=== PATIENT | female | born 1950 | race Asian ===

== ENCOUNTER 2020-02-18 17:18 | Inpatient (IN) | payer MEDICARE, BC ==
[~2020-02-18] VITALS: Ht 162.6 cm; Wt 54.4 kg
--- NOTE | 2020-02-18 18:29 | NUR ---
GPS/RN PT RECEIVED DIRECT ADMIT. FROM THE [facility]. ADMITTING ORDERS FROM DR STANLEY RECEIVED AND CARRIED OUT. PT NOTIFIED OF ADMISSION. WILL ENDORSE TO BALANCER TO FOLLOW UP WITH ADMISSION. Addendum: 02/18/20 at 1842 by NAIN ANGULO RN [facility] [phone]
[2020-02-18 18:32] VITALS: BP 137/72
--- NOTE | 2020-02-18 18:32 | NUR ---
GPS/RN PT REFUSED TO REMOVE YELLOW METAL BRACELET FROM HER WRIST.
[2020-02-18] MEDS ORDERED: MAGNESIUM HYDROXIDE 30 ML UDC PO PRN (19:00)
[2020-02-18] MEDS ORDERED: MAG HYDROX/AL HYDROX/SIMETH 30 ML UDC PO PRN (19:00)
[2020-02-18] MEDS ORDERED: BLOOD SUGAR DIAGNOSTIC 1 EACH STRIP IN ONE (19:00)
[2020-02-18] MEDS ORDERED: ACETAMINOPHEN 325 MG TABLET PO PRN (19:00)
--- NOTE | 2020-02-18 19:11 | NUR ---
GPS TALENT ASSOCIATE NOTES: ADMITTED 69 Y/O FEMALE. PT ADMITTED FROM [facility] GPS UNIT ON A 5150. PER HOLD, PT HAS BEEN CONFUSED, RAMBLING, AND NOT MAKING SENSE. FAMILY IS CONCERNED FOR PATIENTS SAFETY DUE TO HER BEING CONFUSED AND INABILITY TO CARE FOR HERSELF. UPON FACE TO FACE ASSESSMENT, PT IS ALERT ORIENTATED X2, UNCOOPERATIVE, HYPERVERBAL, EASILY AGITATED, FORGETFUL, CONFUSED, DISORGANIZED, ANXIOUS, VERBALLY CURSING AT SELF AND OTHERS, NOT MAKING SENSE WHEN MAKING CONVERSATION. WHEN ASKED PT HER REASON SHE IS HERE, PT STATED, " I HAVE A . CALL HIM!" PT REFUSED TO SIGN CONSENT PAPERS. ENVIRONMENTAL SAFETY CHECK DONE Q15MIN. ENCOURAGE TP VERBALIZE THOUGHTS AND FEELINGS WITH STAFF. ORIENTED TO THE UNIT. NURSING ASSESSMENT DONE. PT REFUSED BODY ASSESSMENT AND PICTURE. EXPLAIN RISKS AND BENEFITS. PT STILL REFUSED X3 AND INCREASED AGITATION. PT REFUSED INITIAL BLOOD SUGAR CHECK, WILL TRY AGAIN LATER. PICTURE TAKEN OT PTS FACE. PICTURE PUT IN CHART. PROVIDED PT W/ HANDBOOK AND MED GUIDE. VITALS TAKEN WNL. NO S.S OF RESP DISTRESS. BREATHING EVEN AND UNLABORED. NO S/S OF PAIN AT THIS TIME. CONTINUE TO MONITOR.
--- NOTE | 2020-02-18 19:49 | NUR ---
GPS RN NOTES: REFUSED INITIAL ACCU CHECK PT REFUSED INITIAL ACCU CHECK. EXPLAIN RISKS AND BENEFITS. PT STILL REFUSED X3. CONTINUE TO MONITOR.
[2020-02-18 20:13] VITALS: BP 137/86
[2020-02-18] MEDS: ZOLPIDEM TARTRATE 5 MG TABLET PO PRN (22:31)
--- NOTE | 2020-02-18 22:32 | NUR ---
GPS RN NOTES: INSOMNIA UPON DOING ROUNDS, PT AWAKE, LOUD, AND HYPERVERBAL. ASKED PT IF SHE CAN NOT SLEEP. PT STATED, "I CANT SLEEP." OFFERED AMBIEN 5MG PO PRN ORDERED. PT AGREED AND TOLERATED MEDICATION WELL. CONTINUE TO MONITOR.
--- NOTE | 2020-02-19 02:12 | NUR ---
GPS RN NOTES: REFUSED ATIVAN UPON DOING ROUNDS PT STILL AWAKE AND TALKING OUT LOUD. PT SEEMS ANXIOUS. ENCOURAGE PT TO EXPRESS THOUGHTS AND FEELINGS. PT RAMBLING AND NOT MAKING SENSE. OFFERED ATIVAN PO PRN ORDERED. PT REFUSED AND STATED, " IM NOT RACISTS. I WONT TAKE ANYTHING. " EXPLAIN RISKS AND BENEFITS. PT STILL REFUSED X3. CONTINUE TO MONITOR.
[2020-02-19 07:21] LABS: ALBUMIN 3.3 g/dL (3.4-5.0); BILIRUBIN,TOTAL 0.4 mg/dL (0.2-1.0); CALCIUM, SERUM 9.3 mg/dL (8.5-10.1); CREATININE 0.9 mg/dL (0.6-1.3); POTASSIUM 3.6 mmol/L (3.5-5.1); TOTAL PROTEIN, SERUM 8.1 g/dL (6.4-8.2)
[2020-02-19 07:22] LABS: CHOLESTEROL 191 mg/dL (<200); HDL CHOLESTEROL 62 mg/dL (40-60); LDL 114 mg/dL (0-99); TRIGLYCERIDES 78 mg/dL (30-150)
[2020-02-19 08:00] VITALS: BP 155/86
[2020-02-19] MEDS: MULTIVIT W/MINERALS 1 TAB TABLET PO SCH (09:56)
[2020-02-19] MEDS: ESCITALOPRAM OXALATE (10 MG) 10 MG TABLET PO SCH (09:56)
[2020-02-19] MEDS: LORAZEPAM 0.5 MG TABLET PO PRN ×2 (10:02→18:15)
--- NOTE | 2020-02-19 10:02 | NUR ---
RN NOTE: ANXIETY PT NOTED TO BE ANXIOUS, RESTLESS, HYPERVERBAL, DELUSIONAL AND PARANOID. MEDICATED WITH ATIVAN 1MG PO PRN.
--- NOTE | 2020-02-19 10:46 | NUR ---
Family Contact: WILFRIDO called the pts , Catalino ([phone]), and informed him that the pts speech is nonsensical and that the SW cannot obtain any information from her. SW received collateral information from the pts for the psychosocial assessment. WILFRIDO then discussed the pts initial discharge plan with the pts and he stated that he would like the pt to return to their home once she is stable.
--- NOTE | 2020-02-19 12:17 | NUR ---
Initial Discharge Plan: Pt currently resides in her home located at [address] [place] [address]; ([phone]) with her , Catalino ([phone]). Per pts , pt will return home once stable. SW will work with the pt and the MD regarding appropriate discharge planning. SW will form a safe and proper discharge.
--- NOTE | 2020-02-19 15:36 | NUR ---
Group Note: SW encouraged the pt to participate in group therapy but the pt began rambling and it was nonsensical. Pt stated, "Who are you? I do not believe in any God. I miss going to the park with my dog Jim. Do you know Jim? And President Lorenzopadma should be fired." WILFRIDO deemed that the pt cannot participate as she is not appropriate at this time.
[2020-02-19 16:00] VITALS: BP 155/90
--- NOTE | 2020-02-19 18:15 | NUR ---
RN NOTE: ANXIETY PT HYPERVERBAL, ANXIOUS AND AGITATED. MEDICATED WITH ATIVAN 1MG PO PRN
[2020-02-19 20:07] VITALS: BP 155/94
[2020-02-19] MEDS: QUETIAPINE FUMARATE 25 MG TABLET PO SCH (21:12)
[2020-02-19 21:30] VITALS: BP 145/87
[2020-02-19] MEDS: ZOLPIDEM TARTRATE 5 MG TABLET PO PRN (22:51)
--- NOTE | 2020-02-19 22:51 | NUR ---
GPS-RN NOTE: INSOMNIA PATIENT UNABLE TO SLEEP. ADMINISTERED AMBIEN 5MG PO ORDERED. WILL CONTINUE TO MONITOR FOR SAFETY.
[2020-02-20 08:00] VITALS: BP 135/81
[2020-02-20] MEDS: ESCITALOPRAM OXALATE (10 MG) 10 MG TABLET PO SCH (08:11)
[2020-02-20] MEDS: MULTIVIT W/MINERALS 1 TAB TABLET PO SCH (08:11)
[2020-02-20] MEDS: QUETIAPINE FUMARATE 25 MG TABLET PO SCH ×3 (10:11→22:36)
--- NOTE | 2020-02-20 14:54 | NUR ---
Individual Counseling : SW met with patient at bedside. SW attempted to engaged patient in conversation regarding mood. The patient stated, "It's like dreaming about price and birds". The patient is not appropriate for therapeutic milieu at this time as patient cannot engage in meaningful conversation. Patient will be invited to the next therapeutic milieu.
[2020-02-20 16:00] VITALS: BP 146/86
--- NOTE | 2020-02-20 19:22 | NUR ---
GPS RN OPENING NOTE: RECEIVED PT RESTING IN BED. A & O X 1-2. CONFUSED/FORGETFUL, ANXIOUS, NOT MAKING ANY SENSE, EASILY AGITATED, HYPERVERBAL, UNCOOPERATIVE, DISORGANIZED, GARBLES, DELUSIONAL, PARANOID, NO ACUTE DISTRESS NOTED. PT DENIES SI/HI AT THIS TIME. TALKING TO HERSELF BUT GARBLES. PER AM RN REPORT, AMBULATORY WITH STAND BY ASSIST DUE TO CONFUSION & FORGETFULNESS, NEEDS FREQUENT REMINDERS TO COMPLETE ADL TASK. BED ALARM ON. BED IN LOW LOCKED POSITION. ENVIRONMENTAL SAFETY CHECKS DONE. WILL CONT TO MONITOR Q 15 MINUTES FOR SAFETY AND BEHAVIOR PER GPS PROTOCOL.
[2020-02-20 20:00] VITALS: BP 146/86
[2020-02-20 20:06] VITALS: BP 146/86
[2020-02-20] MEDS: CEPHALEXIN MONOHYDRATE 500 MG CAPSULE PO SCH (20:45)
[2020-02-20] MEDS: LORAZEPAM 0.5 MG TABLET PO PRN (20:53)
--- NOTE | 2020-02-20 20:53 | NUR ---
ANXIETY/AGITATION PATIENT IS VERY ANXIOUS, RESTLESS, HYPERVERBAL, EASILY AGITATED. PRN ATIVAN 1 MG PO GIVEN. WILL CONTINUE TO MONITOR FOR SAFETY.
--- NOTE | 2020-02-20 21:15 | NUR ---
REFUSED SKIN ASSESSMENT PATIENT IS CONFUSED, FORGETFUL, NEEDS FREQUENT REMINDERS. REFUSED SKIN ASSESSMENT X 3, DOES NOT FOLLOW DIRECTIONS, KEEPS TALKING TO HERSELF, HYPERVERBAL, REFUSES TO TURN OR ROLL TO THE SIDE BUT ABLE TO TURN & REPOSITION IN BED ON HER OWN IF SHE WANTS TO. EASILY AGITATED & ANXIOUS IF TRIED TO RECHECK HER SKIN. UNABLE TO ASSESS PATIENT'S SKIN DUE TO UNCOOPERATIVE BEHAVIOR.
[2020-02-21 01:30] VITALS: BP 137/81
[2020-02-21] MEDS: ZOLPIDEM TARTRATE 5 MG TABLET PO PRN (01:34)
--- NOTE | 2020-02-21 01:34 | NUR ---
GPS RN NOTE: INSOMNIA PATIENT IS UNABLE TO SLEEP, PRN AMBIEN 5 MG 1 TAB PO GIVEN ORDERED. WILL CONTINUE TO MONITOR FOR EFFECTIVENESS.
[2020-02-21 08:00] VITALS: BP 155/92
[2020-02-21] MEDS: CEPHALEXIN MONOHYDRATE 500 MG CAPSULE PO SCH ×2 (09:33→21:14)
[2020-02-21] MEDS: QUETIAPINE FUMARATE 25 MG TABLET PO SCH ×3 (09:33→22:03)
[2020-02-21] MEDS: MULTIVIT W/MINERALS 1 TAB TABLET PO SCH (09:33)
[2020-02-21] MEDS: ESCITALOPRAM OXALATE (10 MG) 10 MG TABLET PO SCH (09:35)
--- NOTE | 2020-02-21 15:06 | NUR ---
INDIVIDUAL INTERVENTION: pt is not appropriate for individual counseling at this time as pt is responding to internal stimuli and does not engage in conversation.
--- NOTE | 2020-02-21 19:23 | NUR ---
GPS RN OPENING NOTE: RECEIVED PT RESTING IN BED WITH EYES OPEN. A & O X 1-2. VERY CONFUSED/FORGETFUL, ANXIOUS, NOT MAKING ANY SENSE, EASILY AGITATED, HYPERVERBAL, UNCOOPERATIVE, DISORGANIZED, GARBLES, DELUSIONAL, PARANOID, NO ACUTE DISTRESS NOTED. PT DENIES SI/HI AT THIS TIME. TALKING TO HERSELF AT TIMES & GARBLES. AMBULATORY WITH STAND BY ASSIST DUE TO CONFUSION & FORGETFULNESS, NEEDS FREQUENT REMINDERS TO COMPLETE ADL TASK. FALL RISK. BED ALARM ON. BED IN LOW LOCKED POSITION. ENVIRONMENTAL SAFETY CHECKS DONE. WILL CONT TO MONITOR Q 15 MINUTES FOR SAFETY AND BEHAVIOR PER GPS PROTOCOL.
[2020-02-21 20:00] VITALS: BP 151/96
[2020-02-21 20:40] VITALS: BP 151/96
[2020-02-21 23:15] VITALS: BP 137/78
[2020-02-22 08:00] VITALS: BP 159/97
[2020-02-22] MEDS: CEPHALEXIN MONOHYDRATE 500 MG CAPSULE PO SCH ×2 (08:23→21:32)
[2020-02-22] MEDS: MULTIVIT W/MINERALS 1 TAB TABLET PO SCH (08:23)
[2020-02-22] MEDS: ESCITALOPRAM OXALATE (10 MG) 10 MG TABLET PO SCH (08:23)
[2020-02-22] MEDS: QUETIAPINE FUMARATE 25 MG TABLET PO SCH ×4 (08:24→21:32)
--- NOTE | 2020-02-22 13:54 | NUR ---
Charge nurse received a call from the chick room supervisor to discharge pt. without the wound consult as approved by Callie. Addendum: 02/22/20 at 1403 by COBY STUBBS RN the documentation is not for this pt.
[2020-02-22 16:00] VITALS: BP 147/85
--- NOTE | 2020-02-22 16:23 | NUR ---
INDIVIDUAL INTERVENTION: pt is not appropriate for individual counseling at this time as pt is responding to internal stimuli and does not engage in conversation.
--- NOTE | 2020-02-22 16:30 | NUR ---
Dr. Tiwari called and gave an order for MRI without contrast in the morning.
[2020-02-22 20:29] VITALS: BP 152/96
[2020-02-23 08:00] VITALS: BP 172/92
[2020-02-23] MEDS: CEPHALEXIN MONOHYDRATE 500 MG CAPSULE PO SCH (09:31)
[2020-02-23] MEDS: LORAZEPAM 0.5 MG TABLET PO PRN (09:31)
[2020-02-23] MEDS: MULTIVIT W/MINERALS 1 TAB TABLET PO SCH (09:31)
[2020-02-23] MEDS: ESCITALOPRAM OXALATE (10 MG) 10 MG TABLET PO SCH (09:31)
[2020-02-23] MEDS: QUETIAPINE FUMARATE 25 MG TABLET PO SCH ×3 (12:50→21:33)
[2020-02-23 16:00] VITALS: BP 141/78
[2020-02-23 20:35] VITALS: BP 120/84
[2020-02-23] MEDS: ZOLPIDEM TARTRATE 5 MG TABLET PO PRN (22:11)
--- NOTE | 2020-02-23 22:50 | NUR ---
GPS RN NOTE PT WAS CONFUSED, DISORIENTED AND DISORGANIZED. RESPONDING TO INTERNAL STIMULI. HALLUCINATING, HYPERVERBAL, POINTING AT THE WALL AND HAVING CONVERSATIONS. REFUSING REDIRECTION. UNABLE TO CONTROL BEHAVIOR. MEDICATION COMPLIANT. WILL CONTINUE TO MONITOR.
[2020-02-24 08:00] VITALS: BP 152/97
[2020-02-24] MEDS: QUETIAPINE FUMARATE 25 MG TABLET PO SCH ×4 (08:00→21:32)
[2020-02-24] MEDS: ESCITALOPRAM OXALATE (10 MG) 10 MG TABLET PO SCH (08:00)
[2020-02-24] MEDS: MULTIVIT W/MINERALS 1 TAB TABLET PO SCH (08:01)
[2020-02-24] MEDS: AMLODIPINE BESYLATE 5 MG TABLET PO SCH (14:13)
[2020-02-24 16:00] VITALS: BP 100/68
[2020-02-24 20:31] VITALS: BP 145/88
[2020-02-24] MEDS: ZOLPIDEM TARTRATE 5 MG TABLET PO PRN (21:32)
--- NOTE | 2020-02-24 22:49 | NUR ---
GPS RN NOTE RECEIVED PT PACING, LOUD, CONFUSED, DISORIENTED AND DISORGANIZED. AUDITORY AND VISUAL HALLUCINATIONS. RESPONDING TO INTERNAL STIMULI. UNABLE TO CONTROL BEHAVIOR. PT WAS REDIRECTED TO PRESENT SITUATION. MEDICATION COMPLIANT. PT IS UNABLE TO SLEEP, AMBIEN 5MG 1 TAB GIVEN PO ORDERED. PT CURRENTLY SLEEPING. NO S/S OF DISTRESS, RESPIRATION EVEN AND UNLABORED WITH EQUAL RISE AND FALL OF THE CHEST, ON ROOM AIR. WILL CONTINUE TO MONITOR.
[2020-02-25 08:00] VITALS: BP 157/92
[2020-02-25] MEDS: AMLODIPINE BESYLATE 5 MG TABLET PO SCH (08:23)
[2020-02-25] MEDS: ESCITALOPRAM OXALATE (10 MG) 10 MG TABLET PO SCH (08:23)
[2020-02-25] MEDS: QUETIAPINE FUMARATE 25 MG TABLET PO SCH ×4 (08:23→21:27)
[2020-02-25] MEDS: MULTIVIT W/MINERALS 1 TAB TABLET PO SCH (08:23)
--- NOTE | 2020-02-25 09:14 | NUR ---
GPS RN NOTE: PT RESTING IN BED AWAKE, A & O X 1-2.CONFUSED/FORGETFUL, ANXIOUS, DISORGANIZED, GARBLES, DELUSIONAL, PARANOID, PT DENIES SI/HI AT THIS TIME. TALKING TO HERSELF AT TIMES &FALL RISK. BED ALARM ON. BED IN LOW LOCKED POSITION. ENVIRONMENTAL SAFETY CHECKS DONE. WILL CONT TO MONITOR Q 15 MINUTES FOR SAFETY AND BEHAVIOR PER GPS PROTOCOL.
[2020-02-25 14:16] LABS: BASOPHILS % (AUTO) 0.6 % (0.0-2.0); EOSINOPHILS % (AUTO) 3.1 % (0.0-6.0); HEMATOCRIT 38 % (33-45); LYMPHOCYTES # (AUTO) 1.3 /CMM (0.8-4.8); LYMPHOCYTES % (AUTO) 23.4 % (20.0-44.0); MEAN CORPUSCULAR HGB CONC 34 g/dl (31.0-36.0); MEAN CORPUSCULAR VOLUME 94 fL (82-100); MONOCYTES # (AUTO) 0.5 /CMM (0.1-1.30); MONOCYTES % (AUTO) 9.7 % (2.0-12.0); NEUTROPHILS # (AUTO) 3.5 /CMM (1.8-8.9); NEUTROPHILS % (AUTO) 63.2 % (43.0-81.0); PLATELET COUNT (AUTO) 375 /CMM (150-450); RED BLOOD CELL COUNT(AUTO) 4.07 MIL/uL (4.0-5.2); WHITE BLOOD COUNT (AUTO) 5.5 K/uL (4.3-11.0)
[2020-02-25 14:30] LABS: ALBUMIN 3.5 g/dL (3.4-5.0); BILIRUBIN,TOTAL 0.7 mg/dL (0.2-1.0); CALCIUM, SERUM 9.4 mg/dL (8.5-10.1); CREATININE 0.9 mg/dL (0.6-1.3); POTASSIUM 3.8 mmol/L (3.5-5.1); TOTAL PROTEIN, SERUM 7.7 g/dL (6.4-8.2)
[2020-02-25 16:00] VITALS: BP 121/91
[2020-02-25] MEDS: BLOOD SUGAR DIAGNOSTIC 1 EACH STRIP IN SCH (16:48)
[2020-02-25] MEDS: LORAZEPAM 0.5 MG TABLET PO PRN (19:40)
--- NOTE | 2020-02-25 19:42 | NUR ---
GPS RN NOTE: ANXIETY/RESTLESSNESS PATIENT IS VRY ANXIOUS, RESTLESS, CRAWLING IN BED, HYPERVERBAL, MAKING WEIRD NOISES. PRN ATIVAN 1 MG PO GIVEN. WILL CONTINUE TO MONITOR FOR ANY CHANGES.
[2020-02-25 20:00] VITALS: BP 135/74
[2020-02-25 20:20] VITALS: BP 135/74
[2020-02-26] MEDS: ZOLPIDEM TARTRATE 5 MG TABLET PO PRN (02:05)
--- NOTE | 2020-02-26 02:06 | NUR ---
GPS RN NOTE: INSOMNIA PATIENT IS AWAKE & UNABLE TO SLEEP AT THIS TIME, GETTING RESTLESS & ANXIOUS. PRN AMBIEN 5 MG 1 TAB PO GIVEN. WILL CONTINUE TO MONITOR FOR SAFETY & BEHAVIOR.
[2020-02-26 08:00] VITALS: BP 132/90
[2020-02-26] MEDS: MULTIVIT W/MINERALS 1 TAB TABLET PO SCH (08:37)
[2020-02-26] MEDS: QUETIAPINE FUMARATE 25 MG TABLET PO SCH ×4 (08:37→21:03)
[2020-02-26] MEDS: ESCITALOPRAM OXALATE (10 MG) 10 MG TABLET PO SCH (08:37)
[2020-02-26] MEDS: AMLODIPINE BESYLATE 5 MG TABLET PO SCH (08:38)
[2020-02-26] MEDS: BLOOD SUGAR DIAGNOSTIC 1 EACH STRIP IN SCH ×2 (08:42→16:26)
--- NOTE | 2020-02-26 09:00 | NUR ---
RN NOTE- CONFUSED IN ROOM, MED COMPLIANT LESS VERBAL DELUSIONAL DENYIMG ALL PO INTAKE VARIED. GOOD THIS AM. DIRECTABLE CALM
[2020-02-26 09:26] LABS: APPEARANCE,URINE CLOUDY (CLEAR); BILIRUBIN,URINE NEGATIVE (NEGATIVE); BLOOD, URINE NEGATIVE Ery/uL (NEGATIVE); COLOR,URINE YELLOW (YELLOW); KETONES,URINE TRACE (NEGATIVE); LEUKOCYTE ESTERASE ,URINE NEGATIVE (NEGATIVE); NITRITE, URINE NEGATIVE (NEGATIVE); PROTEIN,URINE NEGATIVE (NEGATIVE); UGLUCOSE NEGATIVE (NEGATIVE); UROBILINOGEN,URINE 0.2 EU/dL (0.2)
[2020-02-26 09:46] LABS: RBC,URINE 0-2 /HPF (0-2); WBC,URINE 0-2 /HPF (0-3)
[2020-02-26 09:47] LABS: BACTERIA,URINE Few /HPF (None Seen); MUCUS,URINE Few /LPF (None Seen); SQUAMOUS EPITHELIAL CELL,UR 0-2 /HPF (None Seen); URINE AMORPHOUS URATE Many /HPF (None Seen)
--- NOTE | 2020-02-26 15:05 | NUR ---
GROUP NOTE: SW encouraged the pt to participate in group therapy discussing discharge plan but the pt began rambling nonsensically. Pt stated, "I need to call my and tell him I need to shower, that other teofilo needed shampoo and no one helped him. I will tell him the dog is outside. Wait who are you?" WILFRIDO deemed that the pt cannot participate as she is not appropriate at this time.
[2020-02-26 16:00] VITALS: BP 116/77
[2020-02-26 20:52] VITALS: BP 97/72
[2020-02-26 21:02] VITALS: BP 122/82
[2020-02-27] MEDS: ZOLPIDEM TARTRATE 5 MG TABLET PO PRN (00:50)
--- NOTE | 2020-02-27 00:50 | NUR ---
GPS RN NOTES: INSOMNIA UPON DOING ROUNDS, PT AWAKE AND TRYING TO GET OUT OF BED. OFFERED AMBIEN PO PRN ORDERED. PT AGREED AND TOLERATED MEDICATION WELL. CONTINUE TO MONITOR.
[2020-02-27 08:00] VITALS: BP 112/78
[2020-02-27] MEDS: BLOOD SUGAR DIAGNOSTIC 1 EACH STRIP IN SCH ×2 (08:34→17:13)
[2020-02-27] MEDS: AMLODIPINE BESYLATE 5 MG TABLET PO SCH (08:34)
[2020-02-27] MEDS: MULTIVIT W/MINERALS 1 TAB TABLET PO SCH (08:35)
[2020-02-27] MEDS: ESCITALOPRAM OXALATE (10 MG) 10 MG TABLET PO SCH (08:35)
[2020-02-27] MEDS: QUETIAPINE FUMARATE 25 MG TABLET PO SCH (08:35)
--- NOTE | 2020-02-27 09:00 | NUR ---
RN NOTE- PT RESPONDING TO INTERNAL STIMULUS, CONFUSED THOUGH CALM MUMBLING TO SELF
[2020-02-27] MEDS: risperiDONE 1 MG TABLET PO SCH ×2 (09:56→17:12)
[2020-02-27] MEDS ORDERED: KEY,NONCONTROL,TO KEEP IN PYXI 1 EA MC ONE (14:32)
--- NOTE | 2020-02-27 15:54 | NUR ---
Individual Counseling: This SW met patient at beside to facilitate individual counseling regarding support systems. However, the aptient presented sleeping and was not rousable by verbal cues. The patient will be invited to attend the next therapeutic milieu.
[2020-02-27 16:00] VITALS: BP 124/90
--- NOTE | 2020-02-27 17:30 | NUR ---
RN NOTE- UA CX COLLECTED AND LAB CALLED NOTIFIED
--- NOTE | 2020-02-27 19:35 | NUR ---
GPS RN NOTES RECEIVED PATIENT FROM MORNING SHIFT, ALERT AND ORIENTED X 1-2 CONFUSED AND DISORGANIZED. BREATHING REGULAR AND UNLABORED ON ROOM. NO S/S OF PAIN/DISCOMFORT NOTED AT THIS TIME. BED LOW AND LOCKED ON SEMI FOWLERS POSITION. WILL CLOSELY MONITOR FOR SAFETY AND BEHAVIOR.
[2020-02-27 20:00] VITALS: BP 110/77
[2020-02-27 20:08] VITALS: BP 110/77
[2020-02-27] MEDS: TRAZODONE 50 MG TABLET PO SCH (21:21)
[2020-02-28 08:00] VITALS: BP 118/82
[2020-02-28] MEDS: MULTIVIT W/MINERALS 1 TAB TABLET PO SCH (09:30)
[2020-02-28] MEDS: BLOOD SUGAR DIAGNOSTIC 1 EACH STRIP IN SCH ×2 (09:30→17:57)
[2020-02-28] MEDS: risperiDONE 1 MG TABLET PO SCH ×2 (09:31→17:41)
[2020-02-28] MEDS: AMLODIPINE BESYLATE 5 MG TABLET PO SCH (09:31)
--- NOTE | 2020-02-28 15:43 | NUR ---
Family Contact: SW called the pts , Catalino ([phone]), and informed him that the pt has been showing improvement sporadically and that the MD is assessing the pts condition day by day. WILFRIDO stated that once she is considered to be stable and the MD provides a discharge date the SW will inform the pts .
[2020-02-28 16:00] VITALS: BP 126/90
[2020-02-28] MEDS: TRAZODONE 50 MG TABLET PO SCH (21:27)
[2020-02-29 08:00] VITALS: BP 136/93
[2020-02-29] MEDS: MULTIVIT W/MINERALS 1 TAB TABLET PO SCH (08:44)
[2020-02-29] MEDS: risperiDONE 1 MG TABLET PO SCH ×2 (08:44→17:12)
[2020-02-29] MEDS: AMLODIPINE BESYLATE 5 MG TABLET PO SCH (08:45)
[2020-02-29] MEDS: BLOOD SUGAR DIAGNOSTIC 1 EACH STRIP IN SCH ×2 (09:18→17:04)
--- NOTE | 2020-02-29 14:34 | NUR ---
Group Note/Individual Session: SW encouraged the pt to participate in group therapy but the pt stated that she wanted to remain in her room until she is discharged back home. SW informed her that the MD believes that she has shown great improvement and will be discharged on Wednesday. Pt stated that she is no longer hearing any voices and was happy about making sense when she speaks. Pt states that she is excited to go back home and be with her and her dog.
[2020-02-29 16:00] VITALS: BP 145/83
[2020-02-29 20:42] VITALS: BP 140/81
[2020-02-29] MEDS: TRAZODONE 50 MG TABLET PO SCH (22:33)
--- NOTE | 2020-03-01 07:04 | NUR ---
GPS RN OPENING NOTE RECEIVED PT AWAKE SITTING BY SIDE OF BED AT THIS TIME. AO X2-3. PT ABLE TO VERBALIZE NEEDS. NO SOB NOTED, NO S/S OF ANY ACUTE DISTRESS NOTED, NO C/O PAIN AT THIS TIME, BREATHING EVEN AND UNLABORED. PT REMAINS CALM, COOPERATIVE AND COMPLAINT WITH CARE ADMINISTERED. SAFETY.PRECAUTIONS IN PLACE, BED IN LOWEST LOCKED POSITION, BED ALARM ON, HOB ELEVATED TO SEMI FOWLERS POSITION, CALL LIGHT WITHIN REACH,WILL CONTINUE WITH PLAN OF CARE AND CONTINUE TO MONITOR
[2020-03-01 08:00] VITALS: BP 129/58
[2020-03-01] MEDS: risperiDONE 1 MG TABLET PO SCH ×2 (08:59→17:17)
[2020-03-01] MEDS: MULTIVIT W/MINERALS 1 TAB TABLET PO SCH (08:59)
[2020-03-01] MEDS: AMLODIPINE BESYLATE 5 MG TABLET PO SCH (09:00)
[2020-03-01] MEDS: BLOOD SUGAR DIAGNOSTIC 1 EACH STRIP IN SCH ×2 (09:04→17:21)
--- NOTE | 2020-03-01 10:32 | NUR ---
Family Contact: SW called the pts , Catalino ([phone]), and informed him that the pt is being discharged the following day. SW explained that he would present to the front of the hospital and inform the transportation security officer who the pt is that he is picking up. SW expressed that the nursing staff will explain the medications to him and that the SW will provide him with psychiatrist referrals. Pts stated that he will come to pick the pt up around 10:30am.
--- NOTE | 2020-03-01 15:31 | NUR ---
GROUP/ INDIVIDUAL SESSION: SW encouraged the pt to participate in group therapy but the pt stated that she wanted to remain in her room until she is discharged back home. SW informed her that she will be discharged tomorrow. Pt stated that she is no longer hearing any voices but remains withdrawn and isolated. SW encouraged pt to come out of her room but pt states he feels safer in her room.
[2020-03-01 16:00] VITALS: BP 130/81
--- NOTE | 2020-03-01 16:01 | NUR ---
Psychiatrist Referrals: WILFRIDO printed out a list of geriatric psychiatrists that are in the area where the pt resides and placed the referrals in the chart to be given to the pts .
--- NOTE | 2020-03-01 18:56 | NUR ---
GPS RN CLOSING NOTE PATIENT SITTING AT EDGE OF BED AT THIS TIME. PT REMAINED STABLE THROUGHOUT SHIFT, ALL NEEDS, CARE, TREATMENT AND MEDICATIONS ADMINISTERED ANTICIPATED PER ORDER. PT REMAINED CALM, COOPERATIVE AND COMPLAINT TO CARE, SAFETY PRECAUTIONS IN PLACE, BED IN LOWEST LOCKED POSITION, BED ALARM ON, HOB ELEVATED TO SEMI FOWLERS POSITION, CALL LIGHT WITHIN REACH. WILL ENDORSE TO LUTE PACKER OR APPLIER NURSE FOR ALAN
[2020-03-01 20:52] VITALS: BP 131/56
[2020-03-01] MEDS: TRAZODONE 50 MG TABLET PO SCH (21:20)
[2020-03-02 08:00] VITALS: BP 131/89
--- NOTE | 2020-03-02 08:52 | NUR ---
Dr. Rutledge gave an order to D/C hold and D/C home and to follow up with the psych and medical doctors.
[2020-03-02 09:09] VITALS: BP 131/89
[2020-03-02] MEDS: MULTIVIT W/MINERALS 1 TAB TABLET PO SCH (09:09)
[2020-03-02] MEDS: risperiDONE 1 MG TABLET PO SCH (09:09)
[2020-03-02] MEDS: AMLODIPINE BESYLATE 5 MG TABLET PO SCH (09:09)
[2020-03-02] MEDS: BLOOD SUGAR DIAGNOSTIC 1 EACH STRIP IN SCH (09:09)
--- NOTE | 2020-03-02 10:30 | NUR ---
GPS/RN-NOTES PATIENT HAS A DISCHARGE ORDER FROM DR. STANLEY TODAY. SHE WAS DISCHARGE TO HOME . DR. HARRISON MADE AWARE AND AGREED OF THE DISCHARGE. PATIENT DID NOT VERBALIZE SI/HI,DENIES VISUAL/AUDITORY HALLUCINATIONS AT THE TIME OF DISCHARGE. INSULATION INSPECTOR BY CANDIDO VIA PRIVATE CAR. ALL DISCHARGE MEDICATIONS WAS DISCUSS AND REVIEWED WITH THE RX WAS GIVEN TO HIM INCLUDING PSYCHIATRIST REFERRALS LIST. PATIENT LEFT THE UNIT IN STABLE CONDITION ALERT ORIENTED X3 AMBULATORY STEADY GAIT. ALL BELONGINGS WAS GIVEN BACK TO THE PATIENT ,CORE DRIER ACCOMPANIED THE PATIENT IN THE LOBBY FOR SAFETY ALSO MASK WAS OFFERED TO THE PATIENT.
--- NOTE | 2020-03-04 10:10 | NUR ---
Discharge Note: Pt was discharged on 03/02/20 to her home located at [address] [place] [address]; ([phone]). Pt was picked up by her , Catalino ([phone]), at around 10:30am. Upon discharge per RN, pt appeared to be in a euthymic mood and presented in a calm affect. Pt denied both suicidal and homicidal ideation as well as auditory and visual hallucinations. Pt was well groomed, appropriately dressed and ambulatory. SW provided the pts with a list of psychiatric references in their area for follow up. Pt will be under the care of [facility] for psychiatric services, located [address] [place] [address]; ; and a fax of records was sent to: ([phone]). Pt will also be under the care of her dialysis equipment technician, Dr. Leonides Liz, located at [address] [place] [id number]; .
== END 2020-03-02 10:30 | disposition home or self-care (01) | DRG 885 ==
LOC: GPS 18:05
PROVIDERS: ADMIT Psychiatry & Neurology Psychiatry; ATTEND Nurse Practitioner Acute Care
DX: F29 Unspecified psychosis not due to a substance or known physiological condition (principal); N39.0 Urinary tract infection, site not specified; G93.40 Encephalopathy, unspecified; F41.9 Anxiety disorder, unspecified; F32.9 Major depressive disorder, single episode, unspecified; F03.90 Unspecified dementia, unspecified severity, without behavioral disturbance, psychotic disturbance, mood disturbance, and anxiety; I10 Essential (primary) hypertension; E11.9 Type 2 diabetes mellitus without complications
CPT/HCPCS: 36415; 70551-TC; 80053-TC; 80061-TC; 81000-TC; 82962-TC; 84443-TC; 85025-TC; 87081-TC; 87086-TC; 97116-TC; 97530-TC